=== PATIENT | male | born 1965 | race American Indian/Alaskan Native ===

== ENCOUNTER 2021-10-14 12:02 | Emergency (ER) | payer OTHER ==
[2021-10-14 12:30] VITALS: BP 160/88
[2021-10-14] MEDS ORDERED: METOCLOPRAMIDE 10 MG TAB PO ONE (15:40)
[2021-10-14] MEDS ORDERED: predniSONE 20 MG TAB PO ONE (15:40)
[2021-10-14] MEDS ORDERED: ACETAMINOPHEN 500 MG TAB PO ONE (15:40)
[2021-10-14] MEDS ORDERED: diphenhydrAMINE 25 MG CAP PO ONE (15:40)
--- NOTE | 2021-10-14 16:07 | Emergency Department Report ---
ED General Adult HPI - General Chief complaint: High BP Stated complaint: HYPERTENSION CRISIS Time Seen by Provider: 10/14/21 15:41 Source: patient Mode of arrival: Ambulatory Limitations: No Limitations - History of Present Illness Initial comments: Patient 56-year-old male who presents for right frontal headache x1 week. Patient states history of hypertension. Hypertension generally controlled with clonidine and Coreg. Patient states he missed a few doses and pressure got high initiating headache. Headache is rated at 5/10, there is no numbness,or tingling, there has been no loss of vision, no photophobia, no nausea, or vomiting ,no chest pain, or shortness of breath. There no fevers or chills., No numbness or tingling, there has been no confusion. She drove self to ED today patient is alert oriented x3 amatory with steady gait. Last dose of p.o. htn medication was 10 AM. Severity scale (0 -10): 10 - Related Data Previous Rx's Medication Instructions Recorded Last Taken Type Acetaminophen [Pain Relief Extra 1,000 mg PO Q6H PRN #60 tab 10/14/21 Unknown Rx Strength] Metoclopramide [Reglan] 10 mg PO Q6H PRN #30 tablet 10/14/21 Unknown Rx diphenhydrAMINE [Benadryl CAP] 25 mg PO Q6HR PRN #30 capsule 10/14/21 Unknown Rx Allergies Allergy/AdvReac Type Severity Reaction Status Date / Time No Known Allergies Allergy Verified 10/14/21 12:30 ED Review of Systems ROS: Stated complaint: HYPERTENSION CRISIS Other details as noted in HPI Constitutional: denies: chills, fever, malaise Eyes: denies: eye pain, eye discharge, vision change ENT: denies: ear pain, throat pain Respiratory: denies: cough, shortness of breath, wheezing Cardiovascular: denies: chest pain, palpitations Endocrine: no symptoms reported Gastrointestinal: denies: abdominal pain, nausea, diarrhea Genitourinary: denies: urgency, dysuria Musculoskeletal: denies: back pain, joint swelling, arthralgia Skin: denies: rash, lesions Neurological: headache. denies: weakness, numbness, paresthesias, confusion, vertigo Psychiatric: denies: anxiety, depression Hematological/Lymphatic: denies: easy bleeding, easy bruising ED Past Medical Hx - Past Medical History Hx Hypertension: Yes - Medications Home Medications: Home Medications Medication Instructions Recorded Confirmed Last Taken Type Acetaminophen [Pain Relief Extra 1,000 mg PO Q6H PRN #60 tab 10/14/21 Unknown Rx Strength] Metoclopramide [Reglan] 10 mg PO Q6H PRN #30 tablet 10/14/21 Unknown Rx diphenhydrAMINE [Benadryl CAP] 25 mg PO Q6HR PRN #30 capsule 10/14/21 Unknown Rx ED Physical Exam - General Limitations: No Limitations General appearance: alert, in no apparent distress - Head Head exam: Present: normocephalic, normal inspection - Eye Eye exam: Present: PERRL, EOMI. Absent: conjunctival injection, nystagmus Pupils: Present: normal accommodation - ENT ENT exam: Present: normal exam, normal orophraynx, mucous membranes moist, TM's normal bilaterally, normal external ear exam - Neck Neck exam: Present: normal inspection, full ROM. Absent: tenderness, meningismus, lymphadenopathy, thyromegaly - Respiratory Respiratory exam: Present: normal lung sounds bilaterally. Absent: respiratory distress, wheezes, rales, rhonchi, stridor, chest wall tenderness - Cardiovascular Cardiovascular Exam: Present: regular rate, normal rhythm, normal heart sounds. Absent: systolic murmur, diastolic murmur, rubs, gallop - GI/Abdominal GI/Abdominal exam: Present: soft, normal bowel sounds. Absent: distended, tenderness - Rectal Rectal exam: Present: deferred - Extremities Exam Extremities exam: Present: normal inspection, full ROM, normal capillary refill. Absent: tenderness - Back Exam Back exam: Present: normal inspection, full ROM. Absent: CVA tenderness (R), CVA tenderness (L), vertebral tenderness - Neurological Exam Neurological exam: Present: alert, oriented X3, CN II-XII intact, normal gait, reflexes normal. Absent: motor sensory deficit - Expanded Neurological Exam Expanded Patient oriented to: Present: person, place, time Speech: Present: fluid speech Cranial nerves: EOM's Intact: Normal, Gag Reflex: Normal, Tongue Deviation: Normal, Nystagmus: Normal Cerebellar function: Finger to Nose: Normal Motor strength exam: RUE: 5, LUE: 5, RLE: 5, LLE: 5 Best Eye Response ([place]): (4) open spontaneously Best Motor Response ([place]): (6) obeys commands Best Verbal Response ([place]): (5) oriented Connor Total: 15 - Psychiatric Psychiatric exam: Present: normal affect, normal mood - Skin Skin exam: Present: warm, dry, intact, normal color. Absent: rash ED Course Vital Signs 10/14/21 12:28 Temperature 98.4 F Pulse Rate 54 L Respiratory 20 Rate Blood Pressure 160/88 [Right] O2 Sat by Pulse 100 Oximetry ED Medical Decision Making - Medical Decision Making Headache is improved, patient remains alert oriented x3 patient is amatory with steady gait there is no photophobia no dizziness no fever chills no chest pain or shortness of breath. Plan DC to home, follow-up with primary care doctor on Saturday as scheduled. Return to emergency department should symptoms worsen. Patient verbalizes agreement and understanding with discharge plan. Patient DC'd home in stable condition at this time.. Critical care attestation.: If time is entered above; I have spent that time in minutes in the direct care of this critically ill patient, excluding procedure time. ED Disposition Clinical Impression: Cluster headache Qualifiers: Headache chronicity pattern: episodic headache Intractability: not intractable Qualified Code(s): G44.019 - Episodic cluster headache, not intractable Disposition: HOME / SELF CARE / HOMELESS Is pt being admited?: No Does the pt Need Aspirin: No Condition: Stable Instructions: Cluster Headache Additional Instructions: Take medications as prescribed, take your blood pressure medications regularly as prescribed, follow-up with Dr Lopez on Saturday as scheduled. Return to emergency department should symptoms worsen Prescriptions: diphenhydrAMINE [Benadryl CAP] 25 mg PO Q6HR PRN #30 capsule PRN Reason: Headache Acetaminophen [Pain Relief Extra Strength] 1,000 mg PO Q6H PRN #60 tab PRN Reason: Headache Metoclopramide [Reglan] 10 mg PO Q6H PRN #30 tablet PRN Reason: Headache Referrals: LEXUS LOPEZ MD [Staff Physician] - 3-5 Days Forms: Work/School Release Form(ED) Time of Disposition: 16:53
== END 2021-10-14 16:53 | disposition home or self-care (01) ==
LOC: ED 12:02
DX: G44.009 Cluster headache syndrome, unspecified, not intractable (principal); I10 Essential (primary) hypertension
CPT/HCPCS: 99282